=== PATIENT | male | born 1970 | race Caucasian/White ===

== ENCOUNTER → 2016-12-23 | Outpatient (CLI) | payer MEDICARE ==
[~2016-12-23] MED LIST: ASPI-146 PO; COMMODE 3-IN-11 MIS; CPMMACHINE; ENDO10TA8 PO; ENOX40IN SQ; FOLI400T PO; MOBI7.5T PO; OXYC-432 PO; PRED5TAB PO; WALKER WHEELS/F1 MIS
[2016-12-23 11:33] LABS: AUTOMATED NEUTROPHIL # 8.3 TH/MM3 (1.8-7.7); BASOPHIL % 0.2 % (0.0-2.0); EOSINOPHIL # 0.1 TH/MM3 (0-0.4); EOSINOPHIL % 0.5 % (0.0-4.0); HEMATOCRIT 43.4 % (39.0-51.0); HEMO FLAGS DIFF FINAL; LYMPH % 10.8 % (9.0-44.0); LYMPHOCYTE # 1.1 TH/MM3 (1.0-4.8); MEAN CELL VOLUME 81.3 FL (80.0-100.0); MEAN CORPUSCULAR HEMOGLOBIN 26.9 PG (27.0-34.0); MEAN CORPUSCULAR HGB CONC 33.1 % (32.0-36.0); MONO % 6.4 % (0.0-8.0); NEUT % 82.1 % (16.0-70.0); PLATELET COUNT 290 TH/MM3 (150-450); RED BLOOD COUNT 5.34 MIL/MM3 (4.50-5.90); RED CELL DISTRIBUTION WIDTH 13.9 % (11.6-17.2); WHITE BLOOD COUNT 10.1 TH/MM3 (4.0-11.0)
[2016-12-23 11:38] LABS: APTT (PATIENT) 29.1 SEC (24.3-30.1); PROTHROMBIN TIME - PATIENT 10.5 SEC (9.8-11.6)
[2016-12-23 11:42] LABS: BLOOD, URINE TRACE (NEG); COMMENT (UR) CULT NOT INDICATED; CULTURE IF INDICATED CULT NOT INDICATED; GLUCOSE,URINE NEG (NEG); KETONE, URINE NEG (NEG); MUCUS URINE FEW /lpf (OCC); NITRITE,URINE NEG (NEG); URINE COLOR YELLOW (YELLW/STRAW)
[2016-12-23 12:19] LABS: ANION GAP 7 MEQ/L (5-15); AST (GOT) 14 U/L (15-37); BICARBONATE 27.7 MEQ/L (21.0-32.0); BLOOD UREA NITROGEN 15 MG/DL (7-18); CHLORIDE 102 MEQ/L (98-107); GLOMERULAR FILTRATION RATE 118 ML/MIN (>89); GLUCOSE,FASTING 99 MG/DL (74-99); POTASSIUM 3.4 MEQ/L (3.5-5.1); SODIUM (NA) 137 MEQ/L (136-145)
[2016-12-23 12:23] LABS: ALKALINE PHOSPHATASE 102 U/L (45-117); ALT (GPT) 17 U/L (12-78); TOTAL BILIRUBIN ADULT 0.3 MG/DL (0.2-1.0)
[2016-12-23 12:27] LABS: WESTERGREN SEDIMENTATION RATE 44 mm/hr (0-15)
--- NOTE | 2016-12-23 12:52 | RADRPT ---
EXAM DATE/TIME: 12/23/2016 12:39 [facility] COMPARISON: No previous studies available for comparison. INDICATIONS : Pre op total knee replacement. Evaluate for pneumothorax, pneumonia, or any communicable diseases. MEDICAL HISTORY : None. SURGICAL HISTORY : None. ENCOUNTER: Initial ACUITY: 1 day PAIN SCORE: 0/10 LOCATION: Bilateral chest FINDINGS: PA and lateral views of the chest demonstrate the lungs to be symmetrically aerated without evidence of mass, infiltrate or effusion. The cardiomediastinal contours are unremarkable. Osseous structure s are intact. CONCLUSION: No acute disease. Kodi Martinez MD FACR on December 23, 2016 at 12:50 Board Certified Radiologist. This report was verified electronically.
--- NOTE | 2016-12-24 13:20 | EKG ---
Date Performed: 12/23/2016 Time Performed: 12:21:52 PTAGE: 46 years EKG: Sinus rhythm POSSIBLE LEFT ATRIAL ENLARGEMENT BORDERLINE LEFT AXIS DEVIATION INCOMPLETE RIGHT BUNDLE BRANCH BLOCK BORDERLINE ECG NO PREVIOUS TRACING DOCTOR: Roc Joiner Interpretating Date/Time 12/24/2016 13:17:43
== END ==
LOC: CPRE 09:55
PROVIDERS: ATTEND Orthopaedic Surgery
DX: Z01.812 Encounter for preprocedural laboratory examination (principal); Z01.810 Encounter for preprocedural cardiovascular examination; Z01.811 Encounter for preprocedural respiratory examination; M79.609 Pain in unspecified limb; M25.50 Pain in unspecified joint; Z96.60 Presence of unspecified orthopedic joint implant
CPT/HCPCS: 36415; 71020; 80053; 81001; 85025; 85610; 85652; 85730; 93005

== ENCOUNTER 2017-01-08 05:46 | Inpatient (IN) | payer MEDICARE ==
[~2017-01-08] VITALS: Ht 167.6 cm; Wt 65.9 kg
[~2017-01-08 05:46] MED LIST changes: -ASPI-146 PO; -COMMODE 3-IN-11 MIS; -CPMMACHINE; -ENDO10TA8 PO; -ENOX40IN SQ; -WALKER WHEELS/F1 MIS
[2017-01-08] MEDS ORDERED: DEXAMETHASONE SOD PHOS 20 MG/5 ML VIAL IV SCH (06:30)
[2017-01-08] MEDS ORDERED: CHLORHEXIDINE GLUCONATE 2 % 1 PACK (2 CLOTHS) TOPICAL PRN (06:45)
[2017-01-08] MEDS ORDERED: ROPIVACAINE PERI-ARTICULAR INJECTION. P-ARTICULR SCH ×5 (06:45)
[2017-01-08] MEDS ORDERED: POVIDONE IODINE 7.5% SCRUB 118 ML BOTTLE TOPICAL SCH (06:45)
[2017-01-08] MEDS ORDERED: METOPROLOL TARTRATE 25 MG TAB PO PRN (06:45)
[2017-01-08] MEDS ORDERED: ceFAZolin 2 GM PREMIX 50 ML IV SCH (06:45)
[2017-01-08] MEDS ORDERED: TRANEXAMIC ACID INJ 690 MG in SODIUM CHLORIDE 0.9% INJ 100 ML IV SCH ×2 (06:45→11:30)
[2017-01-08] MEDS ORDERED: VANCOMYCIN 1000 MG/NS 250 ML (for <70 kg) IV SCH ×2 (06:45)
[2017-01-08] MEDS ORDERED: POVIDONE IODINE 5% (ANTISEPSIS KIT) 4 APPLICATIONS EACH NARE PRN (06:45)
[2017-01-08] MEDS ORDERED: LACTATED RINGER'S 1000 ML IV PRN (06:45)
[2017-01-08] MEDS ORDERED: INSULIN HUMAN REGULAR 1,000 UNITS/10 ML VIAL SQ PRN (06:45)
[2017-01-08] MEDS ORDERED: SODIUM CHLORID 0.9% 500 ML IV PRN (06:45)
--- NOTE | 2017-01-08 06:53 | HHI.DCPOC ---
Discharge Care Plan Diagnosis: (1) Primary localized osteoarthrosis, lower leg (2) Status post total knee replacement, left Your Health Problems Are: Difficulty with ADL Goals to Promote Your Health * To prevent worsening of your condition and complications * To maintain your health at the optimal level Directions to Meet Your Goals Take your medications as prescribed Follow your dietary instruction Follow activity as directed Keep your appointments as scheduled Take your immunizations and boosters as scheduled If your symptoms worsen call your PCP, if no PCP go to Urgent Care Center or Emergency Room Smoking is Dangerous to Your Health. Avoid second hand smoke Call the 24-hour hour crisis hotline for domestic abuse at Juan Alfaro Jan 08, 2017 06:53
--- NOTE | 2017-01-08 06:55 | HHI.FF ---
Face to Face Verification Diagnosis: (1) Primary localized osteoarthrosis, lower leg (2) Status post total knee replacement, left Physical Therapy Gait training, Transfer training, bed to chair Knee: Total knee Left LE Weight Bearing: WB as tolerated Left LE Range of Motion: Active ROM Nursing Nursing: Kristina teaching Additional Instructions No dressing changes. Patient's first dressing change will be in the office. I have seen patient Mode Gonzalez on 01/08/17. My clinical findings support the need for the requested home health care services because: Limited ability to care for self High risk of falls I certify that my clinical findings support that this patient is homebound because: Post-op weakness Unsteady gait/balance Juan Alfaro Jan 08, 2017 06:55
[2017-01-08] MEDS ORDERED: COMMODE 3-IN-11 MIS (06:57)
[2017-01-08] MEDS ORDERED: CPMMACHINE (06:57)
[2017-01-08] MEDS ORDERED: WALKER WHEELS/F1 MIS (06:57)
[2017-01-08] MEDS ORDERED: ACETAMINOPHEN 1000 MG/100 ML 100 ML IV ONE (07:54)
[2017-01-08] MEDS ORDERED: FAMOTIDINE 20 MG/2 ML VIAL ONE (07:54)
[2017-01-08] MEDS ORDERED: BUPIVACAINE LIPOSOME PF 1.3% 20 ML VIAL ONE (08:23)
[2017-01-08] MEDS ORDERED: GENTAMICIN SULFATE 80 MG/2 ML VIAL ONE (08:36)
[2017-01-08] MEDS ORDERED: diphenhydrAMINE HCL 50 MG/ML VIAL IV PUSH PRN (10:15)
[2017-01-08] MEDS ORDERED: SODIUM CHLORIDE 0.9% FLUSH 5 ML FLUSH IVF PRN (10:15)
[2017-01-08] MEDS ORDERED: NALOXONE HCL 0.4 MG/ML AMP IV PUSH PRN (10:15)
[2017-01-08] MEDS ORDERED: MAGNESIUM HYDROXIDE SUSP 30 ML CUP PO PRN (10:15)
[2017-01-08] MEDS ORDERED: BISACODYL 10 MG SUPP RECTAL PRN (10:15)
[2017-01-08] MEDS ORDERED: Post-op Orders (for Pharmacy) MISC XX ONE (10:15)
[2017-01-08] MEDS ORDERED: ONDANSETRON HCL 4 MG/2 ML VIAL IVP PRN (10:15)
[2017-01-08] MEDS ORDERED: MORPHINE SULFATE 2 MG/ML INJ IV PUSH PRN (10:15)
[2017-01-08] MEDS ORDERED: ALUMINUM/MAGNESIUM/SIMETH 30 ML CUP PO PRN (10:15)
[2017-01-08] MEDS ORDERED: ZOLPIDEM TARTRATE 5 MG TAB PO PRN (10:15)
--- NOTE | 2017-01-08 10:19 | PD.OP ---
cc: Felix Waters MD Operative Report Date of Surgery: Jan 08, 2017 Preoperative Diagnosis: Left knee severe osteoarthritis. Rheumatoid arthritis. Postoperative Diagnosis: Same Procedure: Left total knee arthroplasty Anesthesia: Gen. and adductor canal block Surgeon: Felix Waters Screw Machine Adjuster Automatic(s): MARY Tucker The surgical procedure was assisted by my Advanced Registered Nurse Practitioner. My CAFETERIA OPERATOR presence was necessary throughout this case for the manipulation and positioning of the surgical extremity. My CAFETERIA OPERATOR was assisting me throughout the duration of this procedure. The skill set of an Advance Registered Nurse Practitioner was medically necessary to complete this procedure. During the surgical case, the results technician was working at the back table and the Advance Registered Nurse Practitioner was directly assisting me. Operation and Findings: IMPLANTS: DePuy Attune: Patella: size 38. Femur, posterior stabilized size 7. Tibia, rotating platform size 7. Tibial insert, rotating platform, posterior stabilized size 5 mm thickness. ESTIMATED BLOOD LOSS: 150 cc TOURNIQUET TIME: 43 minutes at 250 mmHg pressure. JUSTIFICATION FOR PROCEDURE: The patient has end-stage osteoarthritis to the knee. There is an attached conservative measures pathway form in the chart that describes the nonoperative measures that were undertaken prior to consideration of surgical management. The patient understood the risks and benefits of surgical management. See my office notes for further details PROCEDURE: The patient was brought back to the operative theatre. Adequate anesthesia was obtained. The patient received intravenous vancomycin and Ancef. The lower extremity was prepped and draped in the usual sterile fashion.The leg was exsanguinated, the tourniquet was raised. A standard anterior incision was performed followed by medial parapatellar arthrotomy was performed. End-stage arthritis was identified. Findings were consistent with rheumatoid arthritis was symmetric narrowing and erosions of both the medial and lateral tibial plateau. Osteotomy of the patella was performed. We drilled holes for the patella. We trialed the patella component. We placed an intramedullary guide into the distal femur. We ultimately resected 13 mm off of the distal femur in 5 degrees of valgus. The remnants of the ACL and PCL were resected. Osteotomy of the proximal tibia was performed, resecting 7 mm off of the medial side. This was done with 3 degrees of posterior slope using an extramedullary guide. The distal end of the guide was placed in the mid aspect of the ankle. The femur was sized, and four chamfer cuts were completed in 3 of external rotation. We then cut the central box in the distal femur to replace the PCL. We resected the remnants of the menisci and removed osteophytes off of the femur and tibia. We then trialed the knee. We punched the tibia for the keel, and then used standard technique to cement in components. Excess cement was removed. We trialed the knee again and the final polyethylene thickness was chosen to provide extension to 0 degrees, and flexion of 140 degrees to gravity. The ligaments were appropriately balanced. Lateral release was not necessary to obtain excellent patellofemoral tracking. The tourniquet was released and adequate hemostasis was obtained. An intra- articular injection of a ropivacaine cocktail was injected. The posterior knee was inspected for excess cement, which was removed. The final polyethylene was put into position after thorough irrigation. We then closed deep fascia with a #2 Stratafix followed by skin with 2-0 Vicryl followed by alfonzo. Postop plan is to weight-bear as tolerated. DVT prophylaxis will be performed with SCDmuriel, DERICK low, early mobilization, and Lovenox followed by aspirin. Felix Waters MD Jan 08, 2017 10:19
[2017-01-08] MEDS ORDERED: ENDO10TA8 PO (10:21)
[2017-01-08] MEDS ORDERED: ENOX40IN SQ (10:21)
[2017-01-08] MEDS ORDERED: ASPI-146 PO (10:21)
[2017-01-08] MEDS ORDERED: oxyCODONE/ACETAMINOPHEN 10 MG/325 MG TAB PO PRN (10:30)
[2017-01-08] MEDS ORDERED: DO NOT ADM ANY ANTICOAGULANT DRUGS PRN (10:42)
[2017-01-08] MEDS ORDERED: *MEPERIDINE 25 MG INJ VIAL PERIprocedural Use ONLY ONE (10:51)
[2017-01-08] MEDS: SODIUM CHLOR 0.9% 1000 ML INJ 1,000 ML IV SCH ×3 (11:00→20:23)
--- NOTE | 2017-01-08 11:11 | RADRPT ---
EXAM DATE/TIME: 01/08/2017 10:38 [facility] COMPARISON: No previous studies available for comparison. INDICATIONS : Total left knee. MEDICAL HISTORY : None. SURGICAL HISTORY : None. ENCOUNTER: Initial ACUITY: 1 day PAIN SCORE: Non-responsive. LOCATION: Left knee FINDINGS: Patient is immediately postop left total knee arthroplasty. Alignment appears normal. No fracture or hardware failure demonstrated. No evidence of an acute complication. CONCLUSION: Expected radiographic appearance left total knee arthroplasty. Jay Roman MD on January 08, 2017 at 11:08 Board Certified Radiologist. This report was verified electronically.
[2017-01-08] MEDS ORDERED: *morphine SULFATE 8 MG/ML PERIprocedure ONLY ONE ×2 (11:15→11:33)
[2017-01-08 12:20] VITALS: BP 115/69; PULSE 95; RESP 18; TEMP 96.1; O2SAT 99
--- NOTE | 2017-01-08 12:55 | PD.CONS ---
HPI Service [facility] Consult Requested By Dr. Waters Reason for Consult Medical management Primary Care Physician Non-Staff Diagnoses: History of Present Illness This is a 46-year-old male returns with chronic left knee pain secondary to osteoarthritis. He underwent total knee arthroplasty today by Dr. Waters who requested consultation to evaluate and manage multiple medical conditions. Anesthesia records reviewed he was hemodynamically stable. Received 1500 mL crystalloid and EBL of 50 mL. Also was given nerve block. At this time, he does not have any pain. Sister at bedside who provided assistance with [employer] translation. Patient has history of rheumatoid arthritis followed by Dr. Cifuentes. He has not taken his methotrexate 1 week prior to surgery as recommended. He is still on prednisone and folic acid. He is not having any active joint pains. He also has history of GERD but no recent complaints of heartburn. All other systems reviewed negative Review of Systems Except as stated in HPI: all other systems reviewed are Neg Past Family Social History Allergies: Coded Allergies: No Known Allergies (Unverified , 12/23/16) Past Medical History As previously mentioned Past Surgical History Knee arthroscopy Reported Medications Oxycodone-Acetaminophen 5-325 mg Tab 1 Tab PO TID Folic Acid 0.4 Mg Tab 400 Mcg PO DAILY Mobic (Meloxicam) 7.5 Mg Tab 7.5 Mg PO DAILY Prednisone 5 Mg Tab 5 Mg PO BID Family History Diabetes mellitus Social History Does not smoke. Occasional alcohol use Physical Exam Vital Signs Vital Signs Date Time Temp Pulse Resp B/P (MAP) Pulse Ox O2 Delivery O2 Flow Rate FiO2 01/08/17 11:20 15 01/08/17 11:20 15 01/08/17 10:40 97.9 73 16 108/66 (80) 100 Nasal Cannula 4 01/08/17 07:26 98.9 77 20 109/77 (88) 99 Physical Exam GENERAL: This is a well-nourished, well-developed patient, in no apparent distress. SKIN: No rashes, ecchymoses or lesions. Cool and dry. HEAD: Atraumatic. Normocephalic. No temporal or scalp tenderness. EYES: Pupils equal round and reactive. Extraocular motions intact. No scleral icterus. No injection or drainage. ENT: Nose without bleeding, purulent drainage or septal hematoma. Throat without erythema, tonsillar hypertrophy or exudate. Uvula midline. Airway patent. NECK: Trachea midline. No JVD or lymphadenopathy. Supple, nontender, no meningeal signs. CARDIOVASCULAR: Regular rate and rhythm without murmurs, gallops, or rubs. RESPIRATORY: Clear to auscultation. Breath sounds equal bilaterally. No wheezes , rales, or rhonchi. GASTROINTESTINAL: Abdomen soft, non-tender, nondistended. No guarding. MUSCULOSKELETAL: Extremities without clubbing, cyanosis, or edema. Left lower extremity in a dry dressing on a CPM.-Hand deformities consistent with rheumatoid arthritis NEUROLOGICAL: Awake and alert. Cranial nerves II through XII intact. Motor and sensory grossly within normal limits. Five out of 5 muscle strength in all muscle groups. Normal speech. Laboratory Preop evaluation reviewed white count of 10 hemoglobin of 14 sodium 137 potassium 3.4 creatinine of 0.7 BUN 15 INR 1 urinalysis unremarkable chest x- ray without acute pulmonary disease EKG sinus rhythm with incomplete right bundle-branch block Assessment and Plan Assessment and Plan This is a 46-year-old male returns with chronic left knee pain secondary to osteoarthritis. He underwent total knee arthroplasty by Dr. Waters who requested consultation to evaluate and manage multiple medical conditions. Also arthritis left knee status post arthroplasty. Stable continue postoperative care with physical therapy, wound care, incentive spirometry, pain management with Percocet and IV morphine and DVT prophylaxis with Lovenox . We'll monitor for anemia secondary to acute blood loss repeat CBC in the morning Rheumatoid arthritis followed by Dr. Cifuentes. He has not taken his methotrexate 1 week prior to surgery as recommended. He is still on prednisone and folic acid and will be continued. He is not having any active joint pains. Stable GERD but no recent complaints of heartburn. Will monitor Discussed Condition With Patient and sister Tawanda Barron MD Jan 08, 2017 12:55
[2017-01-08 16:00] VITALS: BP 101/55; PULSE 90; RESP 18; TEMP 96.2; O2SAT 95
[2017-01-08 19:17] VITALS: BP 104/60; PULSE 95; RESP 16; TEMP 97.3; O2SAT 96
[2017-01-08] MEDS: SODIUM CHLORIDE 0.9% FLUSH 5 ML FLUSH IVF SCH (20:21)
[2017-01-08] MEDS: predniSONE 5 MG TAB PO SCH (20:21)
[2017-01-08 21:36] VITALS: O2SAT 97
[2017-01-09] VITALS (7 sets, daily range): BP systolic 95–106; BP diastolic 57–67; PULSE 84–106; RESP 18; TEMP 97.2–98.4; O2SAT 97–99
[2017-01-09] MEDS: oxyCODONE/ACETAMINOPHEN 10 MG/325 MG TAB PO PRN ×4 (00:33→19:15)
[2017-01-09] MEDS ORDERED: DEXAMETHASONE SOD PHOS 20 MG/5 ML VIAL IV ONE (07:45)
[2017-01-09 08:24] LABS: HEMATOCRIT 29.3 % (39.0-51.0); MEAN CELL VOLUME 80.7 FL (80.0-100.0); MEAN CORPUSCULAR HEMOGLOBIN 27.9 PG (27.0-34.0); MEAN CORPUSCULAR HGB CONC 34.5 % (32.0-36.0); PLATELET COUNT 211 TH/MM3 (150-450); RED BLOOD COUNT 3.63 MIL/MM3 (4.50-5.90); RED CELL DISTRIBUTION WIDTH 14.2 % (11.6-17.2); REVIEW FLAG FINAL; WHITE BLOOD COUNT 9.9 TH/MM3 (4.0-11.0)
[2017-01-09] MEDS: SODIUM CHLORIDE 0.9% FLUSH 5 ML FLUSH IVF SCH ×2 (09:00→21:54)
[2017-01-09] MEDS: predniSONE 5 MG TAB PO SCH ×2 (10:03→21:54)
[2017-01-09] MEDS: ENOXAPARIN SODIUM 40 MG/0.4 ML SYRINGE SQ SCH (10:03)
[2017-01-09] MEDS: FOLIC ACID 1 MG TAB PO SCH (10:03)
--- NOTE | 2017-01-09 12:48 | PD.ORT.PN ---
Subjective Post Op Day #: 1 Subjective Remarks The patient is OOB in chair with minimal pain to the left knee. Patient has been ambulatory. Objective Vitals Vital Signs Date Time Temp Pulse Resp B/P (MAP) Pulse Ox O2 Delivery O2 Flow Rate FiO2 01/09/17 08:00 98.1 92 18 99/65 (76) 98 01/09/17 07:29 98 21 01/09/17 04:00 98.1 87 18 96/57 (70) 99 01/09/17 00:00 98.3 88 18 95/57 (70) 97 01/08/17 21:36 97 01/08/17 19:17 97.3 95 16 104/60 (75) 96 01/08/17 16:00 96.2 90 18 101/55 (70) 95 I/O 01/08/17 01/08/17 01/08/17 01/09/17 01/09/17 01/09/17 07:00 15:00 23:00 07:00 15:00 23:00 Intake Total 446.9 ml 1000 ml 800 ml Output Total 400 ml 100 ml Balance 46.9 ml 1000 ml 700 ml Intake Oral 240 ml IV Total 206.9 ml 1000 ml 800 ml Output Urine Total 400 ml 100 ml # Voids 1 # Bowel Movements 0 Result Diagram: 01/09/17 0739 Procedures Left TKA Objective Remarks The patient's top dressing was removed and the patient's silver dressing was left. There is scant serosanguineous drainage on this dressing. EHL/TA/G intact. 2+ pedal pulse. Moderate swelling to the knee with mild to moderate ecchymosis. Calf is soft and nontender. + SILT. Assessment & Plan Ortho Post Op Day #: 1 Problem List: Assessment and Plan POD #1: Left TKA 1. WBAT LLE 2. Lovenox followed by ASA for DVT prophylaxis 3. Ice to the knee PRN swelling 4. Anticipatory discharge to SNF on Friday 5. F/U with Dr. Waters or MARY Almaraz as previously scheduled. Juan Alfaro Jan 09, 2017 12:48
--- NOTE | 2017-01-09 14:21 | HHI.PR ---
Subjective Remarks Follow-up orthopedic surgery. States he is doing okay with tolerable surgical pain. Seen with RN Objective Vitals Vital Signs Date Time Temp Pulse Resp B/P (MAP) Pulse Ox O2 Delivery O2 Flow Rate FiO2 01/09/17 08:00 98.1 92 18 99/65 (76) 98 01/09/17 07:29 98 21 01/09/17 04:00 98.1 87 18 96/57 (70) 99 01/09/17 00:00 98.3 88 18 95/57 (70) 97 01/08/17 21:36 97 01/08/17 19:17 97.3 95 16 104/60 (75) 96 01/08/17 16:00 96.2 90 18 101/55 (70) 95 I/O 01/08/17 01/08/17 01/08/17 01/09/17 01/09/17 01/09/17 07:00 15:00 23:00 07:00 15:00 23:00 Intake Total 446.9 ml 1000 ml 800 ml Output Total 400 ml 100 ml Balance 46.9 ml 1000 ml 700 ml Intake Oral 240 ml IV Total 206.9 ml 1000 ml 800 ml Output Urine Total 400 ml 100 ml # Voids 1 # Bowel Movements 0 Result Diagram: 01/09/17 0739 Imaging Last Impressions Knee X-Ray 01/08/17 1015 Signed Impressions: Service Date/Time: Sunday, January 08, 2017 10:38 - CONCLUSION: Expected radiographic appearance left total knee arthroplasty. Jay Roman MD Objective Remarks GENERAL: This is a well-nourished, well-developed patient, in no apparent distress. SKIN: No rashes, ecchymoses or lesions. Cool and dry. CARDIOVASCULAR: Regular rate and rhythm without murmurs, gallops, or rubs. RESPIRATORY: Clear to auscultation. Breath sounds equal bilaterally. No wheezes , rales, or rhonchi. GASTROINTESTINAL: Abdomen soft, non-tender, nondistended. No guarding. MUSCULOSKELETAL: Extremities without clubbing, cyanosis, or edema. Left lower extremity with dry dressing. Hand deformities consistent with rheumatoid arthritis NEUROLOGICAL: Awake and alert. Cranial nerves II through XII intact. Motor and sensory grossly within normal limits. Five out of 5 muscle strength in all muscle groups. Normal speech. A/P Assessment and Plan This is a 46-year-old male returns with chronic left knee pain secondary to osteoarthritis. He underwent total knee arthroplasty by Dr. Waters who requested consultation to evaluate and manage multiple medical conditions. Osteo-arthritis left knee status post arthroplasty. Stable continue postoperative care with physical therapy, wound care, incentive spirometry, pain management with Percocet and IV morphine and DVT prophylaxis with Lovenox . Anemia secondary to acute blood loss. Hemodynamically stable. Continue to monitor Rheumatoid arthritis followed by Dr. Cifuentes. He has not taken his methotrexate 1 week prior to surgery as recommended. He is still on prednisone and folic acid and will be continued. He is not having any active joint pains. Stable GERD but no recent complaints of heartburn. Will monitor Discharge Planning Discharge when cleared by orthopedic surgery Tawanda Barron MD Jan 09, 2017 14:21
[2017-01-09] MEDS: SODIUM CHLOR 0.9% 1000 ML INJ 1,000 ML IV SCH ×2 (16:15→21:57)
[2017-01-09] MEDS: DOCUSATE SODIUM 100 MG CAP PO SCH (21:54)
[2017-01-09] MEDS: MULTIVITAMINS/MINERALS THERAPEUTIC TAB PO SCH (21:54)
[2017-01-10 00:50] VITALS: BP 114/70; PULSE 98; RESP 17; TEMP 99.7; O2SAT 97
[2017-01-10] MEDS: oxyCODONE/ACETAMINOPHEN 10 MG/325 MG TAB PO PRN ×5 (02:22→20:52)
[2017-01-10 04:50] VITALS: BP 106/66; PULSE 85; RESP 16; TEMP 97.7; O2SAT 97
[2017-01-10 07:15] LABS: HEMATOCRIT 26.8 % (39.0-51.0); MEAN CELL VOLUME 80.9 FL (80.0-100.0); MEAN CORPUSCULAR HEMOGLOBIN 27.3 PG (27.0-34.0); MEAN CORPUSCULAR HGB CONC 33.8 % (32.0-36.0); PLATELET COUNT 198 TH/MM3 (150-450); RED BLOOD COUNT 3.31 MIL/MM3 (4.50-5.90); RED CELL DISTRIBUTION WIDTH 14.5 % (11.6-17.2); REVIEW FLAG FINAL
[2017-01-10 08:00] VITALS: BP 105/64; PULSE 94; RESP 16; TEMP 97.5; O2SAT 97
[2017-01-10] MEDS: SODIUM CHLORIDE 0.9% FLUSH 5 ML FLUSH IVF SCH ×2 (08:11→20:54)
[2017-01-10] MEDS: FOLIC ACID 1 MG TAB PO SCH (08:11)
[2017-01-10] MEDS: ENOXAPARIN SODIUM 40 MG/0.4 ML SYRINGE SQ SCH (08:11)
[2017-01-10] MEDS: MULTIVITAMINS/MINERALS THERAPEUTIC TAB PO SCH ×2 (08:11→20:52)
[2017-01-10] MEDS: predniSONE 5 MG TAB PO SCH ×2 (08:11→20:52)
[2017-01-10] MEDS: DOCUSATE SODIUM 100 MG CAP PO SCH ×2 (08:11→20:52)
[2017-01-10] MEDS: SODIUM CHLOR 0.9% 1000 ML INJ 1,000 ML IV SCH ×2 (11:43→20:54)
[2017-01-10 12:00] VITALS: BP 116/78; PULSE 98; RESP 16; TEMP 96.9; O2SAT 99
--- NOTE | 2017-01-10 12:40 | HHI.PR ---
Subjective Remarks Follow-up rheumatoid arthritis. States he is doing okay denies arthritic complaints. Improving surgical pain. Discussed with RN Objective Vitals Vital Signs Date Time Temp Pulse Resp B/P (MAP) Pulse Ox O2 Delivery O2 Flow Rate FiO2 01/10/17 08:00 97.5 94 16 105/64 (78) 97 01/10/17 04:50 97.7 85 16 106/66 (79) 97 01/10/17 00:50 99.7 98 17 114/70 (85) 97 01/09/17 20:00 97.9 106 18 106/66 (79) 97 01/09/17 16:00 98.4 94 18 103/67 (79) 97 I/O 01/09/17 01/09/17 01/09/17 01/10/17 01/10/17 01/10/17 07:00 15:00 23:00 07:00 15:00 23:00 Intake Total 800 ml 600 ml 480 ml 240 ml Output Total 100 ml 400 ml 400 ml Balance 700 ml 600 ml 80 ml -160 ml Intake Oral 600 ml 480 ml 240 ml IV Total 800 ml Output Urine Total 100 ml 400 ml 400 ml # Voids 3 # Bowel Movements 1 0 0 Result Diagram: 01/10/17 0606 Objective Remarks GENERAL: This is a well-nourished, well-developed patient, in no apparent distress. SKIN: No rashes, ecchymoses or lesions. Cool and dry. CARDIOVASCULAR: Regular rate and rhythm without murmurs, gallops, or rubs. RESPIRATORY: Clear to auscultation. Breath sounds equal bilaterally. No wheezes , rales, or rhonchi. GASTROINTESTINAL: Abdomen soft, non-tender, nondistended. No guarding. MUSCULOSKELETAL: Extremities without clubbing, cyanosis, or edema. Left lower extremity with dry dressing. Hand deformities consistent with rheumatoid arthritis NEUROLOGICAL: Awake and alert. Cranial nerves II through XII intact. Motor and sensory grossly within normal limits. Five out of 5 muscle strength in all muscle groups. Normal speech. No significant change in PE from previous A/P Assessment and Plan This is a 46-year-old male returns with chronic left knee pain secondary to osteoarthritis. He underwent total knee arthroplasty by Dr. Waters who requested consultation to evaluate and manage multiple medical conditions. Osteo-arthritis left knee status post arthroplasty. Stable continue postoperative care with physical therapy, wound care, incentive spirometry, pain management with Percocet and IV morphine and DVT prophylaxis with Lovenox . Anemia secondary to acute blood loss. Worse but remains hemodynamically stable. Continue to monitor repeat H&H in the morning Rheumatoid arthritis followed by Dr. Cifuentes. He has not taken his methotrexate 1 week prior to surgery as recommended. He is still on prednisone and folic acid and will be continued. He is not having any active joint pains. Stable GERD but no recent complaints of heartburn. Will monitor Discharge Planning Discharge when cleared by orthopedic surgery Tawanda Barron MD Jan 10, 2017 12:40
[2017-01-10 16:00] VITALS: BP 105/69; PULSE 104; RESP 18; TEMP 97.6; O2SAT 100
--- NOTE | 2017-01-10 16:36 | PD.ORT.PN ---
Subjective Post Op Day #: 2 Subjective Remarks The patient is resting in bed with c/o mild to moderate pain. Patient continues to reports moderate swelling and stiffness. Objective Vitals Vital Signs Date Time Temp Pulse Resp B/P (MAP) Pulse Ox O2 Delivery O2 Flow Rate FiO2 01/10/17 12:00 96.9 98 16 116/78 (91) 99 01/10/17 08:00 97.5 94 16 105/64 (78) 97 01/10/17 04:50 97.7 85 16 106/66 (79) 97 01/10/17 00:50 99.7 98 17 114/70 (85) 97 01/09/17 20:00 97.9 106 18 106/66 (79) 97 I/O 01/09/17 01/09/17 01/09/17 01/10/17 01/10/17 01/10/17 07:00 15:00 23:00 07:00 15:00 23:00 Intake Total 800 ml 600 ml 480 ml 240 ml Output Total 100 ml 400 ml 400 ml Balance 700 ml 600 ml 80 ml -160 ml Intake Oral 600 ml 480 ml 240 ml IV Total 800 ml Output Urine Total 100 ml 400 ml 400 ml # Voids 3 # Bowel Movements 1 0 0 Result Diagram: 01/10/17 0606 Procedures Left TKA Objective Remarks The patient's silver dressing has scant serosanguineous drainage on this dressing. EHL/TA/G intact. 2+ pedal pulse. Moderate swelling to the knee with mild to moderate ecchymosis. Calf is soft and nontender. + SILT. Assessment & Plan Ortho Post Op Day #: 2 Problem List: Assessment and Plan POD #2: Left TKA 1. WBAT LLE 2. Lovenox followed by ASA for DVT prophylaxis 3. Ice to the knee PRN swelling 4. Anticipatory discharge to SNF on Friday 5. F/U with Dr. Waters or MARY Almaraz as previously scheduled. Juan Alfaro Jan 10, 2017 16:36
[2017-01-10 20:00] VITALS: BP 110/69; PULSE 97; RESP 17; TEMP 97.5; O2SAT 98
[2017-01-11] VITALS: BP 124/78; PULSE 90; RESP 16; TEMP 98.8; O2SAT 97
[2017-01-11] MEDS: oxyCODONE/ACETAMINOPHEN 10 MG/325 MG TAB PO PRN ×3 (01:12→09:45)
--- NOTE | 2017-01-11 06:53 | PD.ORT.PN ---
Subjective Subjective Remarks Progressing slowly with physical therapy pain is controlled Objective Vitals Vital Signs Date Time Temp Pulse Resp B/P (MAP) Pulse Ox O2 Delivery O2 Flow Rate FiO2 01/11/17 00:00 98.8 90 16 124/78 (93) 97 01/10/17 20:00 97.5 97 17 110/69 (83) 98 01/10/17 16:00 97.6 104 18 105/69 (81) 100 01/10/17 12:00 96.9 98 16 116/78 (91) 99 01/10/17 08:00 97.5 94 16 105/64 (78) 97 I/O 01/10/17 01/10/17 01/10/17 01/11/17 01/11/17 01/11/17 07:00 15:00 23:00 07:00 15:00 23:00 Intake Total 240 ml 600 ml 960 ml 480 ml Output Total 400 ml 600 ml 550 ml Balance -160 ml 600 ml 360 ml -70 ml Intake Oral 240 ml 600 ml 960 ml 480 ml Output Urine Total 400 ml 600 ml 550 ml # Voids 3 # Bowel Movements 0 0 Result Diagram: 01/10/17 0606 Procedures Left TKA Objective Remarks The patient's silver dressing has scant serosanguineous drainage on this dressing. EHL/TA/G intact. 2+ pedal pulse. Moderate swelling to the knee with mild to moderate ecchymosis. Calf is soft and nontender. + SILT. Assessment & Plan Assessment and Plan POD #3: Left TKA 1. WBAT LLE 2. Lovenox followed by ASA for DVT prophylaxis 3. Ice to the knee PRN swelling 4. Anticipatory discharge to SNF today 5. F/U with Dr. Waters or MARY Almaraz as previously scheduled. Piter Silva Jr. Jan 11, 2017 06:52
[2017-01-11 07:30] LABS: HEMATOCRIT 26.9 % (39.0-51.0); MEAN CELL VOLUME 80.3 FL (80.0-100.0); MEAN CORPUSCULAR HEMOGLOBIN 27.9 PG (27.0-34.0); MEAN CORPUSCULAR HGB CONC 34.8 % (32.0-36.0); PLATELET COUNT 226 TH/MM3 (150-450); RED BLOOD COUNT 3.35 MIL/MM3 (4.50-5.90); RED CELL DISTRIBUTION WIDTH 14.3 % (11.6-17.2); REVIEW FLAG FINAL; WHITE BLOOD COUNT 6.1 TH/MM3 (4.0-11.0)
[2017-01-11] MEDS: FOLIC ACID 1 MG TAB PO SCH (07:54)
[2017-01-11] MEDS: DOCUSATE SODIUM 100 MG CAP PO SCH (07:54)
[2017-01-11] MEDS: MULTIVITAMINS/MINERALS THERAPEUTIC TAB PO SCH (07:54)
[2017-01-11] MEDS: predniSONE 5 MG TAB PO SCH (07:55)
[2017-01-11] MEDS: SODIUM CHLOR 0.9% 1000 ML INJ 1,000 ML IV SCH (07:56)
[2017-01-11] MEDS: SODIUM CHLORIDE 0.9% FLUSH 5 ML FLUSH IVF SCH (07:56)
[2017-01-11 08:00] VITALS: BP 98/65; PULSE 86; RESP 18; TEMP 96.6; O2SAT 98
[2017-01-11] MEDS: ENOXAPARIN SODIUM 40 MG/0.4 ML SYRINGE SQ SCH (09:45)
--- NOTE | 2017-01-11 10:10 | HHI.PR ---
Subjective Remarks Follow-up orthopedic surgery. Patient has left leg swelling where he had surgery. Denies leg pain, chest pain and shortness of breath. He is not hypoxic. Discussed with RN Objective Vitals Vital Signs Date Time Temp Pulse Resp B/P (MAP) Pulse Ox O2 Delivery O2 Flow Rate FiO2 01/11/17 08:00 96.6 86 18 98/65 (76) 98 01/11/17 00:00 98.8 90 16 124/78 (93) 97 01/10/17 20:00 97.5 97 17 110/69 (83) 98 01/10/17 16:00 97.6 104 18 105/69 (81) 100 01/10/17 12:00 96.9 98 16 116/78 (91) 99 I/O 01/10/17 01/10/17 01/10/17 01/11/17 01/11/17 01/11/17 07:00 15:00 23:00 07:00 15:00 23:00 Intake Total 240 ml 600 ml 960 ml 480 ml Output Total 400 ml 600 ml 550 ml Balance -160 ml 600 ml 360 ml -70 ml Intake Oral 240 ml 600 ml 960 ml 480 ml Output Urine Total 400 ml 600 ml 550 ml # Voids 3 # Bowel Movements 0 0 Result Diagram: 01/11/17 0619 Objective Remarks GENERAL: This is a well-nourished, well-developed patient, in no apparent distress. SKIN: No rashes, ecchymoses or lesions. Cool and dry. CARDIOVASCULAR: Regular rate and rhythm without murmurs, gallops, or rubs. RESPIRATORY: Clear to auscultation. Breath sounds equal bilaterally. No wheezes , rales, or rhonchi. GASTROINTESTINAL: Abdomen soft, non-tender, nondistended. No guarding. MUSCULOSKELETAL: Extremities without clubbing, cyanosis, or edema. Left lower extremity with dry dressing. Left leg with pitting edema and hemorrhagic blister proximal and. No cough tenderness. Hand deformities consistent with rheumatoid arthritis NEUROLOGICAL: Awake and alert. Cranial nerves II through XII intact. Motor and sensory grossly within normal limits. Five out of 5 muscle strength in all muscle groups. Normal speech. A/P Assessment and Plan This is a 46-year-old male returns with chronic left knee pain secondary to osteoarthritis. He underwent total knee arthroplasty by Dr. Waters who requested consultation to evaluate and manage multiple medical conditions. Osteo-arthritis left knee status post arthroplasty. Stable continue postoperative care with physical therapy, wound care, incentive spirometry, pain management with Percocet and IV morphine and DVT prophylaxis with Lovenox . Left lower extremity edema from surgery. Elevation and teds. Patient on Lovenox Anemia secondary to acute blood loss. Stable. Continue to monitor Rheumatoid arthritis followed by Dr. Cifuentes. He has not taken his methotrexate 1 week prior to surgery as recommended. He is still on prednisone and folic acid and will be continued. He is not having any active joint pains. Stable GERD but no recent complaints of heartburn. Will monitor Discharge Planning Discharge when cleared by orthopedic surgery Tawanda Barron MD Jan 11, 2017 10:10
[2017-01-11 12:00] VITALS: BP 102/64; PULSE 93; RESP 18; TEMP 97.5; O2SAT 99
--- NOTE | 2017-01-12 14:59 | HHI.DS ---
Discharge Summary Admission Date Jan 08, 2017 at 05:46 Discharge Date: Jan 11, 2017 Admitting Diagnosis Primary localized OA, lower leg Status post total knee replacement, left Diagnosis: (1) Primary localized osteoarthrosis, lower leg Diagnosis: Principal ICD Codes: M17.10 - Unilateral primary osteoarthritis, unspecified knee (2) Status post total knee replacement, left Diagnosis: Principal ICD Codes: Z96.652 - Presence of left artificial knee joint Procedures Left TKA Brief History This is a 46 year old male patient with severe OA of the left knee. CBC/BMP: 01/11/17 0619 Significant Findings Laboratory Tests Test 01/10/17 06:06 01/11/17 06:19 Red Blood Count 3.31 MIL/MM3 (4.50-5.90) 3.35 MIL/MM3 (4.50-5.90) Hemoglobin 9.1 GM/DL (13.0-17.0) 9.4 GM/DL (13.0-17.0) Hematocrit 26.8 % (39.0-51.0) 26.9 % (39.0-51.0) PE at Discharge The patient's silver dressing has scant serosanguineous drainage on this dressing. EHL/TA/G intact. 2+ pedal pulse. Moderate swelling to the knee with mild to moderate ecchymosis. Calf is soft and nontender. + SILT. Hospital Course The patient was admitted for severe OA of the left knee to have a left TKA. The patient's surgery went well with no complication. The patient is WBAT on the left lower extremity. The patient is on a regular diet. The patient was placed on Lovenox followed by ASA following surgery for DVT prophylaxis. The patient was discharged to a SNF and will f/u in the office with Dr. Waters or MARY Almaraz as previously scheduled. Pt Condition on Discharge: Stable Discharge Disposition: Discharge to SNF Discharge Instructions Diet Instructions: As Tolerated, No Restrictions Activities You Can Perform: Weight Bearing as Nolberto Activities to Avoid: Strenuous Activity Follow up Referrals: Orthopedics with Felix Waters MD PCP Follow-up - 1 Week New Medications: Aspirin (Ecotrin Regular Strength) 325 Mg Tabdr 325 MG PO DAILY for Prevent Blood Clot, #30 TAB 0 Refills Start Aspirin after Lovenox is completed. Commode 3-in-1 (Commode 3-in-1) 1 Mis Mis EA .ROUTE DIRECTED, #1 0 Refills CPM-Continuous Passive Motion Machine (CPM-Continuous Passive Motion Machine) 1 Ea Device EA .ROUTE DIRECTED, #1 0 Refills Enoxaparin Inj (Enoxaparin Inj) 40 Mg/0.4 Ml Syr 40 MG SQ DAILY for Blood Clot Prevention, #10 SYRINGE 0 Refills Start Aspirin after Lovenox is completed. Oxycodone-Acetaminophen (Endocet) 10-325 mg Tab 1-2 TAB PO Q6H PRN for Pain Management, #60 TAB 0 Refills Walker with Front Wheels (Walker with Front Wheels) 1 Mis Mis EA .ROUTE DIRECTED, #1 0 Refills Continued Medications: Folic Acid (Folic Acid) 0.4 Mg Tab 400 MCG PO DAILY for Nutritional Supplement, TAB 0 Refills Prednisone (Prednisone) 5 Mg Tab 5 MG PO BID, TAB 0 Refills Discontinued Medications: Meloxicam (Mobic) 7.5 Mg Tab 7.5 MG PO DAILY for Pain, TAB 0 Refills Oxycodone-Acetaminophen (Oxycodone-Acetaminophen) 5-325 mg Tab 1 TAB PO TID, TAB 0 Refills Juan Alfaro Jan 12, 2017 14:59
== END 2017-01-11 15:52 | DRG 470 ==
LOC: HSDI 05:46 → N06B 12:14
PROVIDERS: ADMIT Orthopaedic Surgery; ATTEND Orthopaedic Surgery
PROC: 0SRD0J9 Replacement of Left Knee Joint with Synthetic Substitute, Cemented, Open Approach (ICD-10-PCS; principal; 2017-01-08)
PROC: 3E0T3BZ Introduction of Anesthetic Agent into Peripheral Nerves and Plexi, Percutaneous Approach (ICD-10-PCS; 2017-01-08)
DX: M17.12 Unilateral primary osteoarthritis, left knee (principal); D62 Acute posthemorrhagic anemia; M06.9 Rheumatoid arthritis, unspecified; G89.29 Other chronic pain; K21.9 Gastro-esophageal reflux disease without esophagitis
CPT/HCPCS: 73560; 85027; 86850; 86900; 86901; 94150; C9290; J0131; J0690; J0735; J1100; J1580; J1650; J1885; J2175; J2270; J2795; J3370; J7030; J7050; J7120; J7512